=== PATIENT | female | born 1975 | race Caucasian/White ===

== ENCOUNTER 2016-08-24 08:21 | Emergency (ER) | payer SELFPAY ==
[2016-08-24 09:19] LABS: Basophils % (Auto) 0.7 % (0.0-1.8); Eosinophils % (Auto) 5.2 % (0.0-4.3); Hematocrit 39.2 % (30.3-42.9); Hemoglobin 13.5 gm/dl (10.1-14.3); Mean Corpuscular HGB Conc 34 % (30-34); Mean Corpuscular Hemoglobin 30 pg (28-32); Mean Corpuscular Volume 88 fl (79-97); Platelet Count 248 K/mm3 (140-440); Red Blood Count 4.45 M/mm3 (3.65-5.03); Red Cell Distribution Width 12.8 % (13.2-15.2); White Blood Count 7.7 K/mm3 (4.5-11.0)
[2016-08-24 09:46] LABS: Anion Gap 17 mmol/L; Blood Urea Nitrogen 7 mg/dL (7-17); Calcium 8.9 mg/dL (8.4-10.2); Carbon Dioxide 23 mmol/L (22-30); Chloride 100.9 mmol/L (98-107); Glucose 98 mg/dL (65-100); Potassium 3.8 mmol/L (3.6-5.0); Sodium 137 mmol/L (137-145)
--- NOTE | 2016-08-24 10:41 | Ultrasound Report ---
ULTRASOUND OB LESS THAN 14 WEEKS ULTRASOUND OB TRANSVAGINAL HISTORY: Abdominal pain during , possible miscarriage, vaginal bleeding. FINDINGS: No comparison. Transabdominal and transvaginal ultrasound imaging was obtained. The uterus is anteverted and measures 12 x 5 x 8 cm. At least 4 uterine fibroids are identified. An anterior wall submucosal fibroid measures up to 1.8 cm. A posterior wall submucosal fibroid measures 1.3 cm. A posterior wall intramural fibroid measures 2.4 cm. A posterior fundal submucosal fibroid measures 3.5 cm. The endometrial stripe measures 6.3 mm. No hypervascularity, mass or fluid. The visualized cervix is unremarkable. The right ovary measures 3.7 x 2.1 x 2.5 cm. The left ovary measures 3.3 x 1.6 x 2.1 cm. No complex adnexal mass. No free fluid. IMPRESSION: No intrauterine is visualized. The endometrial stripe measures 6.3 mm. Complete is likely given the provided history. Uterine fibroids as described.
[2016-08-24 13:16] LABS: Bacteria,Urine 1+ /HPF (Negative); Bilirubin,Urine NEG (Negative); Blood,Urine NEG (Negative); Ketones,Urine NEG (Negative); Leukocyte Esterase,Urine LG (Negative); Mucus,Urine FEW /HPF; Nitrite,Urine NEG (Negative); Protein,Urine <15 mg/dL mg/dL (Negative); Urobilinogen,Urine < 2.0 mg/dL (<2.0)
--- NOTE | 2016-08-24 15:29 | Emergency Department Report ---
ED Female HPI - General Chief complaint: Abdominal Pain Stated complaint: ABD PAIN/POSS Time Seen by Provider: 08/24/16 15:25 Source: patient Mode of arrival: Ambulatory Limitations: Language Barrier - History of Present Illness Initial comments: 41-year-old female past medical history none presents with complaint of crampy lower abdominal pain in her vaginal bleeding 1 week. Patient states she had passed some clots last week and has now had some spotting. Patient denies any fever or chills no nausea no vomiting no dysuria other than spotting no vaginal discharge. She denies any flank pain no chest pain no palpitations no shortness of breath. MD Complaint: vaginal bleeding, pelvic pain Onset/Timin -: week(s) Radiation: suprapubic Severity: moderate Severity scale (0 -10): 7 Quality: cramping Consistency: constant Improves with: none Are you Now?: Yes Last Menstrual Period: 05/30/16 EDC: 03/06/17 Associated Symptoms: vaginal discharge, vaginal bleeding - Related Data Sexually active: Yes Previous Rx's Medication Instructions Recorded Last Taken Type Ibuprofen [Motrin] 400 mg PO Q8H PRN #25 tablet 08/24/16 Unknown Rx Nitrofurantoin Bremer/M-Cryst 100 mg PO Q12HR #14 capsule 08/24/16 Unknown Rx [Macrobid CAP] Allergies Allergy/AdvReac Type Severity Reaction Status Date / Time seafood Allergy Angioedema Uncoded 08/24/16 08:48 ED Review of Systems ROS: Stated complaint: ABD PAIN/POSS Other details as noted in HPI Constitutional: denies: chills, fever Eyes: denies: eye pain, eye discharge, vision change ENT: denies: ear pain, throat pain Respiratory: denies: cough, shortness of breath, wheezing Cardiovascular: denies: chest pain, palpitations Endocrine: no symptoms reported Gastrointestinal: denies: abdominal pain, nausea, diarrhea Genitourinary: as per HPI. denies: urgency, dysuria, discharge Musculoskeletal: denies: back pain, joint swelling, arthralgia Skin: denies: rash, lesions Neurological: denies: headache, weakness, paresthesias Psychiatric: denies: anxiety, depression Hematological/Lymphatic: denies: easy bleeding, easy bruising ED Past Medical Hx - Past Medical History Previous Medical History?: No - Surgical History Past Surgical History?: No - Social History Smoking Status: Never Smoker Substance Use Type: None - Medications Home Medications: Home Medications Medication Instructions Recorded Confirmed Last Taken Type Ibuprofen [Motrin] 400 mg PO Q8H PRN #25 tablet 08/24/16 Unknown Rx Nitrofurantoin Bremer/M-Cryst 100 mg PO Q12HR #14 capsule 08/24/16 Unknown Rx [Macrobid CAP] ED Physical Exam - General Limitations: Language Barrier General appearance: alert, in no apparent distress - Head Head exam: Present: atraumatic, normocephalic - Eye Eye exam: Present: normal appearance, PERRL, EOMI - ENT ENT exam: Present: mucous membranes moist - Neck Neck exam: Present: normal inspection - Respiratory Respiratory exam: Present: normal lung sounds bilaterally. Absent: respiratory distress - Cardiovascular Cardiovascular Exam: Present: regular rate, normal rhythm. Absent: systolic murmur, diastolic murmur, rubs, gallop - GI/Abdominal GI/Abdominal exam: Present: soft, normal bowel sounds - Speculum exam: Present: vaginal discharge, vaginal bleeding - Extremities Exam Extremities exam: Present: normal inspection, full ROM, tenderness - Back Exam Back exam: Present: normal inspection - Neurological Exam Neurological exam: Present: alert, oriented X3, CN II-XII intact, normal gait - Psychiatric Psychiatric exam: Present: normal affect, normal mood - Skin Skin exam: Present: warm, dry, intact, normal color. Absent: rash ED Course Vital Signs 08/24/16 08:39 Temperature 97.9 F Pulse Rate 70 Blood Pressure 121/72 O2 Sat by Pulse 99 Oximetry ED Medical Decision Making - Lab Data Result diagrams: 08/24/16 09:05 08/24/16 09:05 - Medical Decision Making a/p: Pelvic pain, spontaneous AB 1- Case d/w Dr. 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 As per Dr. Barnard pt likely had miscarriage and can report back top the ED within the next week for HCG level. I will provide pt with Dr. Barnard clinic info for f/u as well. I emphasized to pt the importance of f/u and gave her precautions on ectopic . I advised pt to return for any vaginal hemorrhage, any severe unrelenting abdominal pain, persistent nausea or vomiting, fever or chills, inability to tolerate PO. pt does not have these symptoms at this time. Pt advised to come to the ED in 3-5 days for repeat HCG level. I explained to pt that she likely had spontaneous AB but until HCG level drops with comparative level we must consider . 2- With treat pt empirically for UTI with macrobid. Motrin PRN for crampy pelvic pain. 3- Pt is rH +, no need for rhogam 4- H&H wnl Critical care attestation.: If time is entered above; I have spent that time in minutes in the direct care of this critically ill patient, excluding procedure time. ED Disposition Clinical Impression: Vaginal bleeding, Miscarriage Disposition: DISCHARGED TO HOME OR SELFCARE Is pt being admited?: No Does the pt Need Aspirin: No Condition: Stable Instructions: Ectopic (ED), Spontaneous Miscarriage (ED), Abdominal Pain (ED) Additional Instructions: Patient's return to the ED in 3-5 days for repeat hCG level. I explained to the patient how important this is, patient stated she understood and would return to the ED. I explained to patient I discussed her case with on-call [employer] and we'll give her information for Dr. Barnard's outpatient office protocol for follow-up. Prescriptions: Ibuprofen [Motrin] 400 mg PO Q8H PRN #25 tablet PRN Reason: Pain Nitrofurantoin Bremer/M-Cryst [Macrobid CAP] 100 mg PO Q12HR #14 capsule Referrals: PRIMARY CARE, [Primary Care Provider] - 3-5 Days GARRY BARNARD MD [Staff Physician] - 3-5 Days Forms: Work/School Release Form(ED) Time of Disposition: 18:48
[2016-08-24 19:16] VITALS: BP 107/69
== END 2016-08-24 19:16 | disposition home or self-care (01) ==
LOC: ED 08:21
DX: O03.9 Complete or unspecified spontaneous abortion without complication (principal); Z3A.00 Weeks of gestation of pregnancy not specified
CPT/HCPCS: 36415; 76801; 76817; 80048; 81001; 84702; 84703; 85025; 86850; 86900; 86901; 99284

== ENCOUNTER 2016-08-27 16:21 | Emergency (ER) | payer SELFPAY ==
[2016-08-27 16:36] VITALS: BP 100/64
[2016-08-27 17:04] LABS: Basophils % (Auto) 0.5 % (0.0-1.8); Eosinophils % (Auto) 4.8 % (0.0-4.3); Hematocrit 38.4 % (30.3-42.9); Mean Corpuscular HGB Conc 34 % (30-34); Mean Corpuscular Hemoglobin 30 pg (28-32); Mean Corpuscular Volume 89 fl (79-97); Platelet Count 257 K/mm3 (140-440); Red Blood Count 4.31 M/mm3 (3.65-5.03); Red Cell Distribution Width 12.7 % (13.2-15.2); White Blood Count 7.3 K/mm3 (4.5-11.0)
[2016-08-27 17:13] LABS: Alanine Aminotransferase 19 units/L (7-56); Albumin 4.2 g/dL (3.9-5); Albumin/Globulin Ratio 1.5 %; Alkaline Phosphatase 60 units/L (35-129); Amylase 99 units/L (27-131); Anion Gap 18 mmol/L; Bilirubin,Direct 0.2 mg/dL (0-0.2); Bilirubin,Indirect 1.2 mg/dL; Bilirubin,Total 1.4 mg/dL (0.1-1.2); Blood Urea Nitrogen 10 mg/dL (7-17); Calcium 8.8 mg/dL (8.4-10.2); Carbon Dioxide 22 mmol/L (22-30); Chloride 102.1 mmol/L (98-107); Glucose 108 mg/dL (65-100); Lipase 32 units/L (13-60); Sodium 138 mmol/L (137-145)
--- NOTE | 2016-08-27 19:30 | Ultrasound Report ---
FINAL REPORT PROCEDURE: Ultrasound pelvis, transabdominal and transvaginal TECHNIQUE: Real-time transabdominal sonography in multiple planes of the pelvis was performed. The pelvic structures, especially the ovaries were not optimally visualized. Transvaginal sonography was then performed to better evaluate the structures and/or abnormalities described below with image documentation. CPT 34635 and 98821 HISTORY: recent miscarriage, possible retained POC, pelvic pain COMPARISON: No prior studies are available for comparison. FINDINGS: UTERUS Size: 11.5 x 5.8 x 9.4 cm. Endometrial thickness: 4.8 mm. No intrauterine gestational sac or endometrial fluid is seen. Orientation: anteverted. Cervix: Normal. Fibroids/masses: Several uterine fibroids are identified. There is an exophytic hypoechoic fibroid projecting off the fundus, which measures up to 4 centimeters. There is a 2.7 centimeter posterior uterine body fibroid. RIGHT Ovary: 3.4 x 3.2 x 2.2 cm. Appearance: Complex 3.8 centimeter right adnexal mass, which may be projecting off the right ovary. LEFT Ovary: 2.3 x 1.5 x 1.4 cm. Appearance: Normal. Pelvic fluid: None. Other: None. IMPRESSION: No evidence of endometrial thickening to suggest retained products of conception Complex right adnexal mass, possibly right ovarian in origin. Recommend follow-up/further evaluation.
--- NOTE | 2016-08-27 19:30 | Ultrasound Report ---
FINAL REPORT PROCEDURE: Ultrasound pelvis, transabdominal and transvaginal TECHNIQUE: Real-time transabdominal sonography in multiple planes of the pelvis was performed. The pelvic structures, especially the ovaries were not optimally visualized. Transvaginal sonography was then performed to better evaluate the structures and/or abnormalities described below with image documentation. CPT 00833 and 67625 HISTORY: recent miscarriage, possible retained POC, pelvic pain COMPARISON: No prior studies are available for comparison. FINDINGS: UTERUS Size: 11.5 x 5.8 x 9.4 cm. Endometrial thickness: 4.8 mm. No intrauterine gestational sac or endometrial fluid is seen. Orientation: anteverted. Cervix: Normal. Fibroids/masses: Several uterine fibroids are identified. There is an exophytic hypoechoic fibroid projecting off the fundus, which measures up to 4 centimeters. There is a 2.7 centimeter posterior uterine body fibroid. RIGHT Ovary: 3.4 x 3.2 x 2.2 cm. Appearance: Complex 3.8 centimeter right adnexal mass, which may be projecting off the right ovary. LEFT Ovary: 2.3 x 1.5 x 1.4 cm. Appearance: Normal. Pelvic fluid: None. Other: None. IMPRESSION: No evidence of endometrial thickening to suggest retained products of conception Complex right adnexal mass, possibly right ovarian in origin. Recommend follow-up/further evaluation. PROCEDURE: TECHNIQUE: HISTORY: COMPARISON: FINDINGS: IMPRESSION:
[2016-08-27] MEDS ORDERED: MORPHINE IM ONE (23:03)
[2016-08-27] MEDS ORDERED: ZOFRAN ODT PO ONE (23:03)
--- NOTE | 2016-08-27 23:11 | Emergency Department Report ---
HPI - General Chief Complaint: Abdominal Pain Time Seen by Provider: 08/27/16 16:31 - HPI HPI: The patient is a 41-year-old female who presents for evaluation of abdominal pain. The patient reports 10 days of bilateral lower abdominal pain, cramping in quality, moderate in severity, constant since onset, and associated with mild vaginal bleeding. She shares that she was diagnosed with threatened miscarriage at the ED evaluation 3 days ago. The patient denies fever, chills, night sweats, diarrhea, blood in the stool, dark tarry stool, dysuria, hematuria , flank pain, genital discharge, inability to pass flatus. ED Past Medical Hx - Social History Smoking Status: Never Smoker Substance Use Type: None - Medications Home Medications: Home Medications Medication Instructions Recorded Confirmed Last Taken Type Ibuprofen [Motrin] 400 mg PO Q8H PRN #25 tablet 08/24/16 Unknown Rx Nitrofurantoin [place]ccurt[place]/M-Cryst 100 mg PO Q12HR #14 capsule 08/24/16 Unknown Rx [Macrobid CAP] HYDROcodone/APAP 7.5-325 [Jeffers 1 each PO Q6HR PRN #20 tablet 08/27/16 Unknown Rx 7.5-325 mg TAB] Ondansetron [Zofran TAB] 4 mg PO Q8HR PRN #14 tablet 08/27/16 Unknown Rx ED Review of Systems ROS: Stated complaint: RECHECK Other details as noted in HPI Constitutional: denies: fever ENT: denies: throat or neck pain Respiratory: denies: cough, shortness of breath Cardiovascular: denies: chest pain Endocrine: denies unexplained weight loss or gain Gastrointestinal: reports abdominal pain, nausea Genitourinary: reports vag bleeding Musculoskeletal: denies: leg swelling Skin: denies: rash Neurological: denies: headache Hematological/Lymphatic: denies: easy bleeding or easy bruising Psych: denies sadness or hopelessness Physical Exam - Physical Exam Vital Signs: Vital Signs 08/27/16 16:31 Temperature 98.3 F Pulse Rate 71 Respiratory 18 Rate Blood Pressure 100/64 O2 Sat by Pulse 100 Oximetry Physical Exam: General: well-nourished, well-developed, no acute distress Head: Normocephalic, atraumatic Eyes: normal sclera ENT: Mucous membranes are pink and moist Neck: trachea midline, neck supple, No neck stiffness, no cervical adenopathy Respiratory: Breath sounds equal bilaterally, no wheezing, rales, or rhonchi Cardio: S1 and S2 present, no murmurs, rubs, gallops, capillary refill is brisk Abdomen: Normoactive bowel sounds, soft abdomen, bilateral lower quadrant tenderness to palpation present, no rigidity, no guarding or rebound tenderness Musc: No pitting edema Skin: No rash Neuro: no facial drooping, normal speech Psych: Normal affect ED Course Vital Signs 08/27/16 16:31 Temperature 98.3 F Pulse Rate 71 Respiratory 18 Rate Blood Pressure 100/64 O2 Sat by Pulse 100 Oximetry ED Medical Decision Making - Lab Data Result diagrams: 08/27/16 16:41 08/27/16 16:41 - Medical Decision Making The patient was seen and examined by myself. The patient is placed on a case monitor and continuous pulse ox. On initial evaluation, the patient was found to be in no distress. Evaluation orders are placed. The patient is given IM morphine for pain. Lab results revealed downtrending beta hCG from 11 593 days ago to 600 today, suggestive of miscarriage, and otherwise labs were unremarkable including WBC, hemoglobin, hematocrit, electrolytes, renal function , LFTs, lipase. Medical records are reviewed and revealed ultrasound from 2 days ago was positive for endometrial stride. Ultrasound the pelvis today is negative for acute endometrium, or any products of conception. Ultrasound findings in conjunction with downtrending hCG suggests likely miscarriage. The patient was reevaluated and reported that her pain was markedly improved. The patient is stable for discharge with outpatient follow-up. The patient is given follow-up and return instructions. The patient expressed understanding and agreed with the plan. The patient is discharged in stable condition. Critical care attestation.: If time is entered above; I have spent that time in minutes in the direct care of this critically ill patient, excluding procedure time. ED Disposition Clinical Impression: Miscarriage, Vaginal bleeding, Acute bilateral lower abdominal pain Disposition: DISCHARGED TO HOME OR SELFCARE Is pt being admited?: No Does the pt Need Aspirin: No Condition: Stable Instructions: Spontaneous Miscarriage (ED), Abdominal Pain (ED) Prescriptions: HYDROcodone/APAP 7.5-325 [Jeffers 7.5-325 mg TAB] 1 each PO Q6HR PRN #20 tablet PRN Reason: Pain Ondansetron [Zofran TAB] 4 mg PO Q8HR PRN #14 tablet PRN Reason: Nausea Referrals: [facility] [Provider Group] - 3-5 Days Time of Disposition: 23:05 Print Language: ITALIAN
== END 2016-08-27 23:40 | disposition home or self-care (01) ==
LOC: ED 16:21
DX: O03.9 Complete or unspecified spontaneous abortion without complication (principal); O20.9 Hemorrhage in early pregnancy, unspecified; R10.30 Lower abdominal pain, unspecified; Z3A.00 Weeks of gestation of pregnancy not specified
CPT/HCPCS: 36415; 76801; 76817; 80048; 80074; 82150; 83690; 84702; 85025; 96372; 99284; J2270; Q0162

== ENCOUNTER 2022-03-16 16:05 | Emergency (ER) | payer SELFPAY ==
[2022-03-16 17:26] VITALS: BP 121/65
[2022-03-16 18:40] LABS: Basophils # (Auto) 0.1 K/mm3 (0.0-0.1); Basophils % (Auto) 0.5 % (0.0-1.8); Eosinophils % (Auto) 0.1 % (0.0-4.3); Hematocrit 24.8 % (30.3-42.9); Hemoglobin 7.7 gm/dl (10.1-14.3); Lymphocytes # (Auto) 1.2 K/mm3 (1.2-5.4); Mean Corpuscular HGB Conc 31 % (30-34); Monocytes # (Auto) 0.7 K/mm3 (0.0-0.8); Monocytes % (Auto) 4.7 % (0.0-7.3); Platelet Count 418 K/mm3 (140-440); Red Blood Count 4.31 M/mm3 (3.65-5.03); Red Cell Distribution Width 19.9 % (13.2-15.2)
[2022-03-16 18:49] LABS: Mean Corpuscular Volume 58 fl (79-97)
[2022-03-16 18:54] LABS: Blood Urea Nitrogen 8 mg/dL (7-17); Calcium 8.9 mg/dL (8.4-10.2); Hemolysis Index 0
[2022-03-16 18:55] LABS: BUN/Creatinine Ratio 16
== END 2022-03-16 22:04 | disposition left against medical advice (07) ==
LOC: ED 16:05
DX: R10.9 Unspecified abdominal pain (principal); Z53.21 Procedure and treatment not carried out due to patient leaving prior to being seen by health care provider
CPT/HCPCS: 36415; 80048; 85025